=== PATIENT | female | born 1960 | race Caucasian/White ===

== ENCOUNTER → 2017-07-21 13:27 | Outpatient (CLI) | payer OTHER, SELFPAY ==
--- NOTE | 2017-07-21 13:27 | DT_ITS ---
This patient was seen during an EMR downtime July 20, 2017 - July 27, 2017. This patient may have a combination of paper and electronic documentation or all paper documentation. All documentation is viewable within the e-chart portion of [employer] for each patient visit.
--- NOTE | 2017-07-21 13:35 | RAD_ITS ---
STUDY: X-RAY CHEST REASON FOR EXAM: Female, 57 years old. Fall, left anterior rib and left shoulder pain. TECHNIQUE: PA and lateral views of the chest. COMPARISON: None. FINDINGS: The lungs are clear and expanded. There is no demonstrated pleural abnormality. Normal size heart. Normal mediastinum and ratna. Normal visualized pulmonary arteries. Normal visualized aortic arch and descending thoracic aorta. There are mild degenerative changes and slight S-shaped scoliosis of the thoracolumbar spine. Normal visualized ribs, clavicles, and shoulders. There is no demonstrated abnormality of the visualized soft tissue structures of the upper abdomen. RAD/Chest PA and Lateral IMPRESSION: No acute cardiopulmonary disease. Electronically Signed: Jerry Aldana MD at 15:04 EDT , Service support ,
--- NOTE | 2017-07-21 13:35 | RAD_ITS ---
STUDY: X-RAY - LEFT SHOULDER REASON FOR EXAM: Female, 57 years old. Fall, left shoulder pain. TECHNIQUE: 4 view(s) of the shoulder. COMPARISON: None. FINDINGS: Normal glenohumeral articulation. 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 Normal acromion. Normal humeral head and visualized proximal humerus. The soft tissue structures are unremarkable. There is no demonstrated fracture. Normal visualized pulmonary apex. RAD/Shoulder min 2 Views IMPRESSION: No acute fracture of the left shoulder. Electronically Signed: Jerry Aldana MD at 15:06 EDT , Service support ,
--- NOTE | 2017-07-21 13:35 | RAD_ITS ---
STUDY: X-RAY - BILATERAL RIBS REASON FOR EXAM: Female, 57 years old. Fall, left anterior rib pain. TECHNIQUE: 8 view(s) of the ribs. COMPARISON: None. FINDINGS: Normal visualized ribs without a demonstrated fracture. Incidental note of small sclerotic density in the right humeral head. Small calcification along the greater tubercle of the right humerus suggests chronic calcific tendinitis. There are mild degenerative changes and slight S-shaped scoliosis of the visualized thoracolumbar spine. The visualized lungs are clear and expanded. Normal heart, mediastinum and pulmonary ratna. RAD/Ribs Bilat 3V No CXR IMPRESSION: No acute fracture of the bilateral ribs. Electronically Signed: Jerry Aldana MD at 15:06 EDT , Service support ,
== END ==
PROVIDERS: Family Provider Internal Medicine; PCP Internal Medicine; Visit Provider Physician Assistant Surgical
DX: R07.81 Pleurodynia (principal); M25.512 Pain in left shoulder
CPT/HCPCS: 71046; 71110; 73030

== ENCOUNTER → 2019-02-03 15:13 | Outpatient (CLI) | payer OTHER, SELFPAY ==
--- NOTE | 2019-02-03 15:18 | BI_ITS ---
MAMMOGRAPHY - BILATERAL SCREENING REASON FOR EXAM: Female, 58 years old. Routine annual screening examination. PERTINENT HISTORY: Non-contributory. Occasional bilateral breast tenderness. TECHNIQUE: Digital bilateral breast flor (3D mammographic acquisition) in the CC and MLO projections. 2-D mediolateral oblique (MLO) and craniocaudad (CC) views of both breasts were obtained. CAD: Full Field Digital Mammography with Computer Added Detection was performed. COMPARISON: Comparison is made with prior study dated December 31, 2015. FINDINGS: Breast Composition: The breasts are heterogeneously dense, which may obscure small masses. There are no dominant masses or suspicious calcifications. Stable small benign-appearing bilateral axillary lymph nodes. No other significant abnormalities are identified. There has been no significant change since the prior study. BI/SCREEN MAMM (CAD) W/FLOR BILAT IMPRESSION: Stable bilateral screening mammogram. Yearly follow-up mammogram recommended. (A) ASSESSMENT CATEGORY: BIRADS Category 2: Benign. A letter regarding these results will be sent to the patient by the facility within 30 days. Approximately 10% of breast cancers are not detected by mammography. A normal mammogram should not delay biopsy of a clinically suspicious abnormality. [id number] Electronically Signed: Karan Hu, at 9:06 EST , Service support ,
--- NOTE | 2019-02-03 15:20 | BD_ITS ---
STUDY: DUAL ENERGY X-RAY ABSORPTIOMETRY / DXA REASON FOR EXAM: Female, 58 years old. DIRECTOR INDUSTRIAL-SURGICAL AT 52 -- SMOKER -- TAKES THYROID MEDICATION -- NO CHASTITY TECHNIQUE: Bone Mineral Density (BMD) measurements of lumbar spine and bilateral hips were obtained. COMPARISON: None. FINDINGS: Lumbar Spine (L1-L4): g/cm2 (1.026) / T-score (-1.2) / Z-score (-0.1) Findings are suggestive of osteopenia with a low fracture risk. Left Femur Total: g/cm2 (0.902) / T-score (-0.8) / Z-score (0.0) Left Femoral Neck: g/cm2 (0.795) / T-score (-1.7) / Z-score (-0.6) Right Femur Total: g/cm2 (0.884) / T-score (-1.0) / Z-score (-0.1) Right Femoral Neck: g/cm2 (0.772) / T-score (-1.9) / Z-score (-0.7) BD/Dexa Bone Density Study IMPRESSION: The patient is considered osteopenic as outlined below according to World Davidson Organization (WHO) criteria with a moderate fracture risk. Reference Information: The T-score is the number of standard deviations above or below the standard which is normal for young adults at their peak bone mineral density. The World Health Organization (WHO) interprets the T-scores as follows: Above -1 Normal bone density Between -1 and -2.5 Osteopenia Equal to / or below -2.5 Osteoporosis As a practical clinical guideline, osteopenia may be graded as follows: Mild -1 through -1.5 Moderate -1.6 through -2.0 Severe -2.1 through -2.4 The Z-score is the number of standard deviations above or below age-matched controls. A Z-score of less than -1.5 would be considered abnormal. References: 1. NIH Osteoporosis and Related Bone Diseases http://www.osteo.org 2. International Society for Clinical Densitometry http://www.iscd.org 3. National Osteoporosis Foundation http://www.nof.org Electronically Signed: Karan Hu, at 13:33 EST , Service support ,
== END ==
PROVIDERS: Family Provider Internal Medicine; PCP Internal Medicine; Referring Provider Internal Medicine; Visit Provider Internal Medicine
DX: Z12.31 Encounter for screening mammogram for malignant neoplasm of breast (principal); Z78.0 Asymptomatic menopausal state
CPT/HCPCS: 77063; 77067; 77080

== ENCOUNTER → 2019-02-18 10:38 | Outpatient (CLI) | payer OTHER, SELFPAY ==
[2016-07-28 13:28] VITALS: BMI 36.3
--- NOTE | 2019-02-18 10:42 | RAD_ITS ---
STUDY: X-RAY CHEST REASON FOR EXAM: Female, 58 years old. COUGH X 2 WEEKS TECHNIQUE: PA and lateral views of the chest. COMPARISON: July 21, 2017. FINDINGS: The lungs are clear and expanded. There is no demonstrated pleural abnormality. Normal size heart. Normal mediastinum and ratna. Normal visualized pulmonary arteries. Normal visualized aortic arch and descending thoracic aorta. Normal visualized thoracic spine. Normal visualized ribs, clavicles, and shoulders. There is no demonstrated abnormality of the visualized soft tissue structures of the upper abdomen. RAD/Chest PA and Lateral IMPRESSION: Normal x-ray examination of the chest. Electronically Signed: Teo Acharya MD at 12:35 EST , Service support ,
== END ==
PROVIDERS: Family Provider Internal Medicine; PCP Internal Medicine; Referring Provider Nurse Practitioner; Visit Provider Nurse Practitioner
DX: J40 Bronchitis, not specified as acute or chronic (principal)
CPT/HCPCS: 71046

== ENCOUNTER → 2021-01-07 14:41 | Outpatient (CLI) | payer OTHER, SELFPAY ==
[2021-01-07 13:45] LABS: Troponin-I HS 4 pg/mL (3.0-54.0)
--- NOTE | 2021-01-07 14:52 | CT_ITS ---
STUDY: CT BRAIN WITHOUT CONTRAST REASON FOR EXAM: Female, 60 years old. RECURRENT SYNCOPE RADIATION DOSAGE (If Supplied By Facility): CTDIvol = ( 44.99 ) mGy, DLP = ( 812.98 ) mGycm TECHNIQUE: Transaxial CT imaging of the brain was performed without administration of intravenous contrast material. Individualized dose optimization techniques were used for this CT. COMPARISON: No relevant priors. FINDINGS: Nonspecific calcification of bilateral malar soft tissues, chronic appearing. Normal calvarium. Normal size ventricles and extra-axial spaces for the patient''s age. Normal white matter tracts of the cerebral hemispheres. Normal basal ganglia and thalami. Normal brainstem. Normal cerebellum. There is no intracranial hemorrhage. There are no findings of an acute ischemic infarction. Normal visualized paranasal sinuses. CT/Brain/Head without Contrast IMPRESSION: No acute intracranial hemorrhage or mass effect. Electronically Signed: Tre Daniels MD ([place]) at 16:21 EST , Service support ,
== END ==
PROVIDERS: PCP Internal Medicine; Referring Provider Internal Medicine; Visit Provider Internal Medicine
DX: R55 Syncope and collapse (principal)
CPT/HCPCS: 70450; 84484

== ENCOUNTER → 2021-01-18 10:00 | Outpatient (CLI) | payer OTHER, SELFPAY ==
--- NOTE | 2021-01-18 10:04 | ECHOCS_ITS ---
Reason For Study: Syncope Procedure This was a 2D Doppler, Color Flow transthoracic echocardiogram. The study was technically difficult. Contrast injection was performed. Bubble study performed. Exam performed in department. Left Ventricle Normal LV size. The estimated ejection fraction is 60 %. No evidence for diastolic dysfunction. No regional wall motion abnormalities noted. Right Ventricle Normal RV size. Normal systolic function. Atria Normal left atrium. Normal right atrium. No doppler evidence for ASD. Mitral Valve There is no mitral valve stenosis. No mitral valve insufficiency. Tricuspid Valve There is no tricuspid stenosis. Unable to estimate RV systolic pressure due to inadequate jet, pulmonary artery pressure probably normal. Aortic Valve There is no aortic stenosis. No aortic valve insufficiency. Pulmonic Valve There is no pulmonic valvular stenosis. No pulmonic valve insufficiency. Great Vessels Normal aortic root. Pericardium/Pleural No pericardial effusion. Medication 22 gauge I.V. with prn adaptor inserted into left arm. Diluted definity 2ml given slow IV push to enhance endocardial definition. Performed a rapid injection of agitated mix of 9 cc saline and 1cc air to assess for atrial septal defect. MMode/2D Measurements & Calculations LVIDd: 4.1 cm IVSd: 1.2 cm LA dimension: 2.5 cm LVIDs: 2.6 cm LVPWd: 1.3 cm FS: 36.1 % LAV(MOD-bp): 37.2 ml LA A4 area: 15.1 cm2 LAV(MOD-bp) Indexed: 20.1 ml/m2 LAV(MOD-sp2): 32.0 ml LAV(MOD-sp4): 37.9 ml Time Measurements MV dec time: 0.27 sec Doppler Measurements & Calculations MV E max tom: 84.6 cm/sec Lat Peak E' Tom: 6.8 cm/sec Med Peak E' Tom: 6.3 cm/sec MV A max tom: 95.1 cm/sec E/E' lat: 12.5 E/E' med: 13.4 MV E/A: 0.89 MV V2 max: 105.2 cm/sec MV P1/2t max tom: 90.1 cm/sec Ao V2 max: 120.9 cm/sec MV max P.4 mmHg MV P1/2t: 86.0 msec Ao max P.8 mmHg MV V2 mean: 64.4 cm/sec MV dec slope: 306.9 cm/sec2 MV mean P.9 mmHg MV V2 VTI: 24.8 cm MVA(P1/2t): 2.6 cm2 LV V1 max: 96.6 cm/sec PA V2 max: 80.9 cm/sec LV V1 max P.7 mmHg ECHO/Echo Complete W/ Contrast Interpretation Summary The estimated ejection fraction is 60 %. No evidence for diastolic dysfunction. Ordering Physician: Lexus Braga Referring Physician: Lexus Braga Performed By: Bobby Mustafa RCS
--- NOTE | 2021-01-18 10:04 | CDU_ITS ---
Reason For Study: Dizzy Rt. Velocities/BP Lt. Velocities/BP Prox CCA 130.2/24.3 cm/sec. Prox CCA 115.6/29.8 cm/sec. Mid CCA 104.7/22.5 cm/sec. Mid CCA 93.7/22.5 cm/sec. Dist CCA 99.2/18.8 cm/sec. Dist CCA 69.1/21.2 cm/sec. Prox ICA 169.7/46.8 cm/sec. Prox ICA 152.1/44.5 cm/sec. Mid ICA 130.2/33.4 cm/sec. Mid ICA 147.7/33.6 cm/sec. Dist ICA 75.4/22.5 cm/sec. Dist ICA 95.5/31.6 cm/sec. Rt. ICA/CCA = 1.62. Lt. ICA/CCA = 1.62. Prox ECA 146.7/27.9 cm/sec. Prox ECA 169.6/22.6 cm/sec. Rt. Vert. 57.5/19 cm/sec. Lt. Vert. 42.1/13.5 cm/sec. Right Extracranial There is homogeneous, smooth atherosclerotic plaque noted in the right common carotid artery. There is heterogeneous, irregular atherosclerotic plaque noted in the right internal carotid artery. There is homogeneous, smooth atherosclerotic plaque noted in the right external carotid artery. Antegrade flow is noted in the right vertebral artery. Left Extracranial There is homogeneous, smooth atherosclerotic plaque noted in the left common carotid artery. There is heterogeneous, irregular atherosclerotic plaque noted in the left internal carotid artery. There is homogeneous, smooth atherosclerotic plaque noted in the left external carotid artery. Antegrade flow is noted in the left vertebral artery. Procedure Carotid Duplex 24338. This is a Carotid Duplex examination using B-mode, color flow and specral Doppler. Exam performed in department. VL/Carotid Duplex Ultrasound Interpretation Summary Irregular calcific plaque in the proximal right internal carotid artery with 50 to 69% stenosis. Less than 50% stenosis right external carotid artery Irregular calcific plaque in the proximal left internal carotid artery with 50 to 69% stenosis. Less than 50% stenosis left external carotid artery Patent and antegrade vertebral arteries bilaterally Ordering Physician: Lexus Braga Referring Physician: Lexus Braga Performed By: Maia Viveros RVT
--- NOTE | 2021-01-18 10:06 | EKG12_ITS ---
Test Reason : DIZZINESS Blood Pressure : / mmHG Vent. Rate : 079 BPM Atrial Rate : 079 BPM P-R Int : 152 ms QRS Dur : 080 ms QT Int : 388 ms P-R-T Axes : -13 047 074 degrees QTc Int : 444 ms Normal sinus rhythm Normal ECG Confirmed by RAY FROST, JHOAN ([id number]), features editor OMAR CONNOR ([id number]) on 01/21/2021 9:17:55 AM Referred By: Lexus Braga Confirmed By:FLOYD BELL MD
== END ==
PROVIDERS: PCP Internal Medicine; Referring Provider Internal Medicine; Visit Provider Internal Medicine
DX: R42 Dizziness and giddiness (principal); R55 Syncope and collapse
CPT/HCPCS: 93005; 93225; 93226; 93306; 93880; Q9957; A4216; C8929; J3490

== ENCOUNTER → 2022-06-20 | Outpatient (CLI) | payer MEDICAID, SELFPAY ==
[2022-06-20 17:47] LABS: T4 Free Direct 1.39 ng/dL (0.76-1.46); Thyroid Stim Hormone (TSH) 3.63 uIU/mL (0.358-3.74)
== END | disposition home or self-care (01) ==
LOC: LAB 15:53
PROVIDERS: PCP Nurse Practitioner Primary Care; Referring Provider Nurse Practitioner Primary Care; Visit Provider Nurse Practitioner Primary Care
DX: F33.1 Major depressive disorder, recurrent, moderate (principal); E03.9 Hypothyroidism, unspecified
CPT/HCPCS: 36415; 84439; 84443; 84480

== ENCOUNTER → 2023-06-26 | Outpatient (CLI) | payer MEDICAID, SELFPAY ==
[2023-06-26 09:34] LABS: Hematocrit 46.3 % (37-47); Hemoglobin 15.1 g/dL (12.0-15.0); Mean Corp Hgb Conc 32.6 g/dL (32-36); Mean Corpuscular Hgb 30.8 pg (27.0-32.0); Mean Corpuscular Volume 94.3 fL (81-99); Mean Platelet Vol. 9.2 fl (6.2-12.0); Platelet Count 243 K/mm3 (150-450); RBC Distribution Width CV 13.2 % (11.6-14.6); RBC Distribution Width SD 45.9 fl (35.1-43.9); Red Blood Count 4.91 M/mm3 (4.2-5.4); White Blood Count 6.2 K/mm3 (4.4-11.0)
[2023-06-26 10:53] LABS: ALB/GLOB Ratio 0.9 RATIO (0.9-2.4); AST(SGOT) 18 U/L (15-37); Alanine Aminotransfer ALT/SGPT 24 U/L (13-56); Albumin, Serum 3.4 g/dL (3.2-5.0); Alkaline Phosphatase 122 U/L (45-117); Anion Gap 2 (5-15); BUN 10 mg/dL (7-18); CRP 5.53 mg/L (0.0-3.0); Calcium,Total 8.8 mg/dL (8.5-10.1); Chloride 111 mmol/L (98-107); Cholesterol 184 mg/dL (200); Creatinine, Serum 0.77 mg/dL (0.55-1.02); EST Glomerular Filtration Rate 80 mL/min (>60); Est Glom Filt Rate - Afr Amer 97 mL/min (>60); Globulin 3.8 g/dL (2.2-4.2); Glucose 96 mg/dL (74-106); High Density Lipoprotein 45 mg/dL; Potassium 3.7 mmol/L (3.5-5.1); Protein, Total 7.2 g/dL (6.4-8.2); Rheumatoid Factor < 10.0 IU/mL (<15); Sodium Level 141 mmol/L (136-145); T4 Free Direct 1.15 ng/dL (0.76-1.46); Thyroid Stim Hormone (TSH) 8.31 uIU/mL (0.358-3.74); Triglycerides 115 mg/dL; Uric Acid 4.6 mg/dL (2.6-6.0); Very Low Density Lipoprotein 23 mg/dL (5-40); Vitamin D,25 Hydroxy 61.7 ng/mL
[2023-06-29 13:07] LABS: ANTINUCLEAR ANTIBODIES DIRECT Positive (Negative)
== END | disposition home or self-care (01) ==
LOC: LAB 08:37
PROVIDERS: PCP Nurse Practitioner Family; Referring Provider Nurse Practitioner Family; Visit Provider Nurse Practitioner Family
DX: E03.9 Hypothyroidism, unspecified (principal); M06.9 Rheumatoid arthritis, unspecified; E78.5 Hyperlipidemia, unspecified; E55.9 Vitamin D deficiency, unspecified; R53.83 Other fatigue
CPT/HCPCS: 36415; 80053; 80061; 82306; 84439; 84443; 84550; 85027; 86038; 86140; 86431

== ENCOUNTER → 2023-07-07 | Outpatient (CLI) | payer MEDICAID, SELFPAY ==
--- NOTE | 2023-07-07 15:57 | BI_ITS ---
MAMMOGRAPHY - BILATERAL SCREENING 3-D TOMOSYNTHESIS REASON FOR EXAM: Female, 63 years old. SCREENING PERTINENT HISTORY: No significant family history. TECHNIQUE: 2-D mammograms and 3-D Tomosynthesis of the breast (s) were performed. CAD was performed. COMPARISON: 02/03/2019 FINDINGS: The breast composition is Extermely dense tissue. Scattered benign calcifications are seen. No dense spiculated masses or suspicious microcalcifications are identified. No architectural distortion is identified. There is no skin thickening or retraction. There has been no significant change since the prior study. BI/SCRN MAMM (CAD)W/FLOR BILAT IMPRESSION: No mammographic signs of malignancy. Routine yearly mammograms recommended. ASSESSMENT CATEGORY: BIRADS Category 1: Negative. A letter regarding these results will be sent to the patient by the facility within 30 days. FOLLOW UP RECOMMENDATION: Yearly follow up mammogram recommended. (A) Approximately 10% of breast cancers are not detected by mammography. A normal mammogram should not delay biopsy of a clinically suspicious abnormality. Electronically Signed: Huan Suarez MD at 9:43 EDT ,
== END | disposition home or self-care (01) ==
LOC: OPBI 15:56
PROVIDERS: PCP Nurse Practitioner Family; Referring Provider Nurse Practitioner Family; Visit Provider Nurse Practitioner Family
DX: Z12.31 Encounter for screening mammogram for malignant neoplasm of breast (principal)
CPT/HCPCS: 77063; 77067

== ENCOUNTER → 2024-01-21 | Outpatient (CLI) | payer MEDICAID, SELFPAY | END | disposition home or self-care (01) | LOC: SL 13:49 | PROVIDERS: PCP Nurse Practitioner Family; Referring Provider Nurse Practitioner Family; Visit Provider Nurse Practitioner Family | DX: G47.33 Obstructive sleep apnea (adult) (pediatric) (principal) | CPT/HCPCS: 98960; G0463 ==

== ENCOUNTER → 2024-01-22 | Outpatient (CLI) | payer MEDICAID, SELFPAY ==
[2024-01-22 12:45] VITALS: PULSE 100; PULSE 110; PULSE 111; PULSE 89; PULSE 90; O2SAT 94; O2SAT 95; O2SAT 96; O2SAT 97; O2SAT 98
--- NOTE | 2024-01-25 13:06 | PCM.PSN.6M ---
PSN 6 Minute Walk Test 6 Minute Walk Test 6 Minute Walk Test: 6 Minute Walk Test PSN:6-Minute Walk Test Start: 01/22/24 12:45 Freq: Status: Active Protocol: RESP.6MINW Document 01/22/24 12:45 AMARILYS (Rec: 01/22/24 12:48 AMARILYS [id number]) 6 Minute Walk Test Date Performed 01/22/24 Time Performed 12:30 Height 5 ft 3 in Weight: 152 lb Weight in Pounds 152.[address]: Mirian Allison Assistive device used: None Pre-test Oxygen Delivery Method Room Air Pulse Ox (%) 98 Pulse Rate (60-100 beats/min) 89 Dyspnea Radha Scale (0-10) 2 Exertion Radha Scale (6-20) 6 1st minute Oxygen Delivery Method Room Air Pulse Ox (%) 96 Pulse Rate (60-100 beats/min) 100 2nd minute Oxygen Delivery Method Room Air Pulse Ox (%) 95 Pulse Rate (60-100 beats/min) 110 H 3rd minute Oxygen Delivery Method Room Air Pulse Ox (%) 95 Pulse Rate (60-100 beats/min) 110 H 4th minute Oxygen Delivery Method Room Air Pulse Ox (%) 95 Pulse Rate (60-100 beats/min) 110 H 5th minute Oxygen Delivery Method Room Air Pulse Ox (%) 95 Pulse Rate (60-100 beats/min) 111 H 6th minute Oxygen Delivery Method Room Air Pulse Ox (%) 94 Pulse Rate (60-100 beats/min) 110 H Dyspnea Radha Scale (0-10) 3 Exertion Radha Scale (6-20) 12 Post-test Oxygen Delivery Method Room Air Pulse Ox (%) 97 Pulse Rate (60-100 beats/min) 90 Full Laps Walked 19 Partial Lap, Number of Tiles Walked 21 Total Distance Walked (ft) 1142 Interpretation Interpretation: The patient ambulated 1142 feet over the course of 6 minutes beginning on room air without assistive devices. Pretesting oxygen saturation was noted to be 98% on room air. With ambulation, the karina oxygen saturation was 94%. There was no significant exertional oxygen dehydration. Recommendations Recommendations: There is no indication for the use of supplemental oxygen at this time.
== END | disposition home or self-care (01) ==
LOC: PSN 12:16
PROVIDERS: PCP Nurse Practitioner Family; Referring Provider Nurse Practitioner Family; Visit Provider Nurse Practitioner Family
DX: J44.9 Chronic obstructive pulmonary disease, unspecified (principal); F17.210 Nicotine dependence, cigarettes, uncomplicated
CPT/HCPCS: 94618

== ENCOUNTER → 2024-02-01 | Outpatient (CLI) | payer MEDICAID, SELFPAY ==
--- NOTE | 2024-02-01 13:52 | CT_ITS ---
EXAM: CT CHEST, LUNG CANCER SCREENING WITHOUT INTRAVENOUS CONTRAST CLINICAL INDICATION: current smoker, greater than 30 pack year history TECHNIQUE: Helically acquired images were obtained of the chest without intravenous contrast using low dose (LDCT) lung cancer screening protocol. This CT exam was performed using one or more of the following dose reduction techniques: automated exposure control, adjustment of the mA and/or kV according to patient size, and/or use of iterative reconstruction technique. COMPARISON: No relevant prior studies available. FINDINGS: LUNGS AND PLEURAL SPACES: There are mild emphysematous changes in the upper lobes. There is a nodule on the fissure in the right lower lobe. There are pleural-based nodules in the right middle lobe. No pneumothorax. HEART: Unremarkable. Heart size is normal. No pericardial effusion. No significant coronary artery calcifications. MEDIASTINUM: Unremarkable. No mediastinal or hilar adenopathy. Esophagus is unremarkable. No hiatal hernia. THYROID: Unremarkable. No thyroid lesions. BONES/JOINTS: Unremarkable. No suspicious lytic or blastic abnormality. VASCULATURE: Unremarkable. Thoracic aorta is non-dilated. LYMPH NODES: Unremarkable. No enlarged lymph nodes. CT/Low Dose CT Lung Screening IMPRESSION: No acute pulmonary abnormality. There are several pleural-based nodules within the right lungs. Lung-RADS score: 2 - Benign Appearance or Behavior. Recommend continued annual screening with a low-dose CT (LDCT) in 12 months. Electronically Signed: Luisito Russo MD at 19:51 [facility] ,
== END | disposition home or self-care (01) ==
LOC: CT 12:55
PROVIDERS: PCP Nurse Practitioner Family; Referring Provider Nurse Practitioner Family; Visit Provider Nurse Practitioner Family
DX: F17.210 Nicotine dependence, cigarettes, uncomplicated (principal)
CPT/HCPCS: 71271; 94060; 94726; 94729

== ENCOUNTER → 2024-06-01 | Outpatient (CLI) | payer MEDICAID, SELFPAY | END | disposition home or self-care (01) | LOC: LABSPEC 14:04 | PROVIDERS: PCP Nurse Practitioner Family; Referring Provider Nurse Practitioner Family; Visit Provider Nurse Practitioner Family | DX: R05.3 Chronic cough (principal) | CPT/HCPCS: 87070; 87205 ==

== ENCOUNTER → 2024-12-20 | Outpatient (CLI) | payer MEDICAID, SELFPAY | END | disposition home or self-care (01) | LOC: PSN 11:54 | PROVIDERS: PCP Nurse Practitioner Family; Referring Provider Nurse Practitioner Family; Visit Provider Nurse Practitioner Family | DX: J43.9 Emphysema, unspecified (principal) | CPT/HCPCS: 94060; 94726; 94729 ==

== ENCOUNTER → 2024-12-27 | Outpatient (CLI) | payer MEDICAID, SELFPAY ==
[2024-12-27 14:26] VITALS: PULSE 105; PULSE 107; PULSE 108; PULSE 110; PULSE 112; PULSE 88; PULSE 90; O2SAT 93; O2SAT 94; O2SAT 96
--- NOTE | 2024-12-30 11:02 | PCM.PSN.6M ---
PSN 6 Minute Walk Test 6 Minute Walk Test 6 Minute Walk Test: 6 Minute Walk Test PSN:6-Minute Walk Test Start: 12/27/24 14:24 Freq: Status: Active Protocol: RESP.6MINW Document 12/27/24 14:26 JR (Rec: 12/27/24 14:29 JR [id number]) 6 Minute Walk Test Date Performed 12/27/24 Time Performed 13:45 Height 5 ft 3 in Weight: 152 lb Weight in Pounds 152.[address]: Mirian Allison Assistive device None used: Pre-test Oxygen Delivery Room Air Method Pulse Ox (%) 96 Pulse Rate (60-100 88 beats/min) Dyspnea Radha Scale ( 0 0-10) Exertion Radha Scale 6 (6-20) 1st minute Oxygen Delivery Room Air Method Pulse Ox (%) 93 Pulse Rate (60-100 105 H beats/min) 2nd minute Oxygen Delivery Room Air Method Pulse Ox (%) 96 Pulse Rate (60-100 107 H beats/min) 3rd minute Oxygen Delivery Room Air Method Pulse Ox (%) 93 Pulse Rate (60-100 108 H beats/min) 4th minute Oxygen Delivery Room Air Method Pulse Ox (%) 96 Pulse Rate (60-100 105 H beats/min) 5th minute Oxygen Delivery Room Air Method Pulse Ox (%) 96 Pulse Rate (60-100 112 H beats/min) 6th minute Oxygen Delivery Room Air Method Pulse Ox (%) 94 Pulse Rate (60-100 110 H beats/min) Dyspnea Radha Scale ( 2 0-10) Exertion Radha Scale 11 (6-20) Post-test Oxygen Delivery Room Air Method Pulse Ox (%) 96 Pulse Rate (60-100 90 beats/min) Full Laps Walked 19 Partial Lap, Number 0 of Tiles Walked Total Distance 1121 Walked (ft) Interpretation Interpretation: The patient ambulated 1121 feet over the course of 6 minutes beginning on room air without assistive devices. Pretesting oxygen saturation was noted to be 96% on room air. With ambulation, the karina oxygen saturation was 93%. There was no significant exertional oxygen desaturation. Recommendations Recommendations: There is no indication for the use of supplemental oxygen at this time.
== END | disposition home or self-care (01) ==
LOC: PSN 13:40
PROVIDERS: PCP Nurse Practitioner Family; Referring Provider Nurse Practitioner Family; Visit Provider Nurse Practitioner Family
DX: J43.9 Emphysema, unspecified (principal)
CPT/HCPCS: 94618

== ENCOUNTER → 2025-02-01 | Outpatient (CLI) | payer MEDICAID, SELFPAY ==
--- NOTE | 2025-02-01 13:49 | CT_ITS ---
PROCEDURE: LOW DOSE CT LUNG SCREENING 02/01/2025 REASON FOR EXAM: CURRENT SMOKER, 30 PACK YEAR TECHNIQUE: Procedure Code: [id number] Modality: CT Procedure: LOW DOSE CT LUNG SCREENING CT chest was performed without IV contrast. Multiplanar reformats were generated. One or more dose reduction techniques were used (e.g., Automated exposure control, adjustment of the mA and/or kV according to patient size, use of iterative reconstruction technique). RADIATION DOSE SUMMARY: CTDlvol: 3.02 mGy DLP: 95.53 mGycm COMPARISON: 02/01/2024 FINDINGS: Note that evaluation of the vasculature, ratna, and soft tissues is limited in the absence of IV contrast. Heart/pericardium:Severe three-vessel coronary atherosclerosis and/or stents. Trace aortic annular calcification. Aorta: Trace calcific atherosclerosis. Two-vessel arch anatomy, normal variant. Pulmonary arteries: Unremarkable. Lymph nodes: Unremarkable. Lungs/pleura: Emphysema. Similar 6 x 4 mm subpleural RIGHT middle lobe nodule (series 2, image 149). Similar fissural nodule along the anterior aspect of the minor fissure measuring 6 x 6 mm (image 150). Additional fissural likely intrapulmonary lymph nodes along the RIGHT major fissure unchanged. Additional subpleural nodules unchanged, annotated on series 2. Mild likely atelectasis/scarring. Airways: Unremarkable. Chest wall: Unremarkable. Upper abdomen: Suboptimally evaluated due to low-dose technique and photon starvation, grossly unremarkable.. Musculoskeletal: Demineralization. Mild degenerative findings. Similar punctate sclerotic presumed bone island in the RIGHT humeral head.. CT/Low Dose CT Lung Screening IMPRESSION: 1. Lung-RADS category: 2S (benign appearance or behavior, <1% chance of maligna ncy); continue annual screening with LDCT. 2. Additional description as above. Recommendations per [employer]. Lung CT Screening Reporting and Data System (Lung-RADS) v. 202 Reading Location: [id number]
== END | disposition home or self-care (01) ==
LOC: CT 13:45
PROVIDERS: PCP Nurse Practitioner Family; Referring Provider Nurse Practitioner Family; Visit Provider Nurse Practitioner Family
DX: F17.210 Nicotine dependence, cigarettes, uncomplicated (principal)
CPT/HCPCS: 71271